=== PATIENT | female | born 1970 | race Caucasian/White ===

== ENCOUNTER → 2016-11-23 | Outpatient (CLI) | payer OTHER ==
[~2016-11-23] VITALS: Ht 182.9 cm; Wt 69.3 kg
[~2016-11-23] MED LIST: FENTANYL PA50 MCG/HR TRANSDERM; NABUMETONE 750750 M1 PO; OXYCODONE HCL30 MG PO; XANAX 0.5 MG0.5 MG PO
--- NOTE | ~2016-11-23 | HPC ---
[facility] [address] [place] [address] PAIN MANAGEMENT CONSULTATION Name: CHETLEANNA WILLARD [facility] [id number] Admission: 11/23/16 Attend Phys: Mike Johnson DO Discharge: Date of : 68 Report #: [id number] THIS REPORT FOR: //name// CC: CORDELIA Johnson HISTORY OF PRESENT ILLNESS: The patient is an extremely pleasant 46-year-old female, prior seen back in September in followup, had a single cervical epidural injection on 09/18/2016, with 75-100% overall improvement of baseline pain, symptoms were abated when I saw her last, we elected to postpone any interventional therapy. She returns to pain clinic today noting symptoms have begun to recur noting pain in the neck, radiating to both shoulders and upper arms, all associated with an ongoing headache. Rates pain 4-5 on a 0-10 Visual Analog Scale. She has been sleeping in a recliner with some efficacy. PHYSICAL EXAMINATION: Reveals a 46-year-old female. BMI is 20.7 kg/m2. Vital signs stable as noted in the EMR. Cervical range of motion shows positive Lhermitte. Upper extremity strength is generally symmetric. Prior right shoulder trauma and rotator cuff repair, some slight weakness in the deltoid muscles on this side. ASSESSMENT: Symptomatic cervical radiculopathy by clinical exam, greater than 75% relief following single injection back in August with several months of relief, pain has gradually begun to recur. RECOMMENDATIONS: After discussion with the patient today, we have elected to proceed with cervical epidural injection under fluoroscopy today. Follow up in 4 weeks for reevaluation. PROCEDURE: Cervical epidural injection under fluoroscopy. PROCEDURE NOTE: After written and informed consent was obtained including risk of dural puncture, spinal cord trauma, paralysis and increased pain, the patient was taken to the fluoroscopy suite and placed in the prone position, with appropriate abdominal bolstering, neck was flexed, palms under the thighs. Skin was prepped with ChloraPrep. Sterile draping was applied. Skin wheal with 3% Nesacaine was raised; 3% Nesacaine was used in consideration of the patient's AMIDE LOCAL ANESTHETIC ALLERGY. A 22-gauge 3-1/2 inch epidural Tuohy needle was placed via a midline approach at the C7-T1 interspace, advanced under biplanar fluoroscopy using continuous loss of resistance. With appropriate loss of resistance at the expected depth on lateral view, the glass loss of resistance syringe was disconnected. A low volume extension tubing was connected to the needle and a 5 mL syringe. Negative aspiration for cerebrospinal fluid or blood was noted. One mL of Omnipaque was injected which showed spread within the epidural space on biplanar fluoroscopy. This was followed with 80 mg of triamcinolone plus 1 mL of 1.5% preservative Nesacaine. Needle was withdrawn to the interspinous ligament, Nesacaine was used to flush the [address] [address] PAIN MANAGEMENT CONSULTATION Name: LEANNA ROSENBERG Room #: REG JONATHAN Sharif#: [id number] Admission: 11/23/16 Attend Phys: Mike Johnson, Discharge: Date of : 68 Report #: [id number] needle. The needle was then completely withdrawn. The area was cleansed. Band-Aid was applied. The patient was allowed to move off the procedure table and ambulated to the recovery room, monitored for an appropriate period of time, discharged in good and stable condition. <ELECTRONICALLY SIGNED> By: Mike Johnson DO 11/29/16 1607 0702 0944 Mike Johnson DO /nt
[2016-11-23 14:01] VITALS: BP 124/54
== END | disposition home or self-care (01) ==
LOC: PAIN 10-02 08:55
DX: M54.12 Radiculopathy, cervical region (principal); M19.90 Unspecified osteoarthritis, unspecified site; F17.210 Nicotine dependence, cigarettes, uncomplicated

== ENCOUNTER → 2016-12-18 | Outpatient (CLI) | payer OTHER ==
[~2016-12-18] VITALS: Ht 182.9 cm; Wt 70.0 kg
--- NOTE | ~2016-12-18 | HPC ---
[facility] [place] [address] PAIN MANAGEMENT CONSULTATION Name: CHETLEANNA WILLARD [facility]: REG [facility] [id number] Admission: 12/18/16 Attend Phys: Mike Johnson DO Discharge: Date of : 68 Report #: [id number] THIS REPORT FOR: //name// CC: CORDELIA Johnson The patient is a very pleasant 46-year-old female, being treated for symptomatic cervical radiculopathy. Initial cervical injection on 09/18/2016, second injection on 11/23/2016. He returns to pain clinic today, noting greater than 50% improvement of baseline pain, still has cervical radicular symptoms, primarily in right arm, but has some left lateral epicondylitis pain as well. Cervical range of motion shows positive Lhermitte's. Ongoing headaches as well. ASSESSMENT: Symptomatic cervical radiculopathy, incremental improvement following 2 epidural injections, and pain remains problematic. RECOMMENDATION: Repeat cervical epidural injection under fluoroscopy today. Follow up as needed. We did talk about getting an bfwm-ras-xfaorup "tennis strap" for her left forearm. She does have point tenderness over the lateral epicondyle with pain exacerbated with resistance to extension of the left wrist. ASSESSMENT: Symptomatic cervical radiculopathy. PROCEDURE: Cervical epidural injection under fluoroscopy. DESCRIPTION OF PROCEDURE: After written and informed consent was obtained including risk of dural puncture, spinal cord trauma, paralysis and increased pain, the patient was taken to the fluoroscopy suite and placed in the prone position, with appropriate abdominal bolstering, neck was flexed, palms under the thighs. Skin was prepped with ChloraPrep. Sterile draping was applied. Skin wheal with 1% Xylocaine was raised. A 22-gauge 3-1/2 inch epidural Tuohy needle was placed via a midline approach at the C7-T1 interspace, advanced under biplanar fluoroscopy using continuous loss of resistance. With appropriate loss of resistance at the expected depth on lateral view, the glass loss of resistance syringe was disconnected. A low volume extension tubing was connected to the needle and a 5 mL syringe. Negative aspiration for cerebrospinal fluid or blood was noted. A 1 mL of Omnipaque was injected which showed spread within the epidural space on biplanar fluoroscopy. This was followed with 80 mg of triamcinolone plus 1 mL of 1.5% preservative Xylocaine. Needle was withdrawn to the interspinous ligament, 0.5 mL of Xylocaine was used to flush the needle. The needle was then completely withdrawn. The area was cleansed. Band-Aid was applied. The [place] [address] PAIN MANAGEMENT CONSULTATION Name: LEANNA ROSENBERG Room #: REG JONATHAN Sharif#: [id number] Admission: 12/18/16 Attend Phys: Mike Johnson DO Discharge: Date of : 68 Report #: [id number] procedure table and ambulated to the recovery room, monitored for an appropriate period of time, discharged in good and stable condition. <ELECTRONICALLY SIGNED> By: Mike Johnson DO 12/22/16 0811 1116 1351 Mike Johnson DO /nt
[2016-12-18 09:47] VITALS: BP 110/66
== END | disposition home or self-care (01) ==
LOC: PAIN 07:04
DX: M54.12 Radiculopathy, cervical region (principal)

== ENCOUNTER → 2017-03-09 | Outpatient (CLI) | payer OTHER ==
[~2017-03-09] VITALS: Ht 182.9 cm; Wt 72.6 kg
--- NOTE | ~2017-03-09 | HPC ---
[facility] [address] [address] PAIN MANAGEMENT CONSULTATION Name: CHETLEANNA WILLARD [facility] #: REG [facility] [id number] Admission: 03/09/17 Attend Phys: Mike Johnson DO Discharge: Date of : 68 Report #: [id number] THIS REPORT FOR: //name// CC: CORDELIA Johnson The patient is a pleasant 47-year-old female, being treated for symptomatic cervical radiculopathy. She had an initial cervical epidural injection back in August, two injections in November with recurrent cervical radicular symptoms. She returns to pain clinic today, noting that while the injections afforded good relief, pain remains problematic. She is also complaining bitterly of bilateral tennis elbow type symptoms with lateral epicondylitis pain. Ongoing pain in the upper back, and between her shoulder blades. PHYSICAL EXAMINATION: Shows a pleasant 47-year-old female, BMI is 21.7 kilograms per meter squared. Vital signs are stable as noted in the EMR. Cervical range of motion has modestly positive Lhermitte's, pain with abduction. Very tender over the left and right lateral epicondyles, pain with resistance to wrist extension. No myelopathic symptoms noted. Tender in the upper thoracic paravertebral muscles, some spasm noted, but no discrete trigger points. ASSESSMENT: 1. Symptomatic cervical radiculopathy. 2. Bilateral lateral epicondylitis, status post lumbar decompressive laminectomy. RECOMMENDATIONS: 1. I had a long discussion with the patient today about therapeutic options. We would like to refer to physical therapy for modalities as indicated, including iontophoresis for bilateral epicondylitis and for strengthening and therapeutic exercises for upper thoracic spondylosis and myofascial pain. 2. Continue nabumetone 750 mg b.i.d. 3. Opiate analgesics as prescribed by Dr. Zavala. 4. Cervical epidural injection under fluoroscopy today. 5. Follow up in 30 days for reevaluation. PROCEDURE NOTE: Cervical epidural injection under fluoroscopy. DESCRIPTION OF PROCEDURE: After written and informed consent was obtained including risk of dural puncture, spinal cord trauma, paralysis and increased pain, the patient was taken to the fluoroscopy suite and placed in the prone position, with appropriate abdominal bolstering, neck was flexed, palms under the thighs. Skin was prepped with ChloraPrep. Sterile draping was applied. Skin wheal with 1% Xylocaine was raised. A 22-gauge 3-1/2 inch epidural Tuohy needle was placed via a midline approach at the C7-T1 interspace, advanced under biplanar fluoroscopy using continuous loss of resistance. With appropriate loss [address] [address] PAIN MANAGEMENT CONSULTATION Name: LEANNA ROSENBERG Room #: REG [facility] Chante#: [id number] Admission: 03/09/17 Attend Phys: Mike Johnson DO Discharge: Date of : 68 Report #: [id number] of resistance at the expected depth on lateral view, the glass loss of resistance syringe was disconnected. A low volume extension tubing was connected to the needle and a 5 mL syringe. Negative aspiration for cerebrospinal fluid or blood was noted. A 1 mL of Omnipaque was injected which showed spread within the epidural space on biplanar fluoroscopy. This was followed with 80 mg of triamcinolone plus 1 mL of 1.5% preservative Xylocaine. Needle was withdrawn to the interspinous ligament, 0.5 mL of Xylocaine was used to flush the needle. The needle was then completely withdrawn. The area was cleansed. Band-Aid was applied. The patient was allowed to move off the procedure table and ambulated to the recovery room, monitored for an appropriate period of time, discharged in good and stable condition. <ELECTRONICALLY SIGNED> By: Mike Johnson DO 03/12/17 1538 1221 1534 Mike Johnson DO /nt
[2017-03-09 09:51] VITALS: BP 109/69
== END ==
LOC: PAIN 06:46
DX: M54.12 Radiculopathy, cervical region (principal); M19.90 Unspecified osteoarthritis, unspecified site; F32.9 Major depressive disorder, single episode, unspecified; Z87.891 Personal history of nicotine dependence

== ENCOUNTER → 2017-07-13 | Outpatient (CLI) | payer OTHER ==
[~2017-07-13] VITALS: Ht 182.9 cm; Wt 68.9 kg
[~2017-07-13] MED LIST changes: +OMEPRAZOLE 20 M20 M1 PO
--- NOTE | ~2017-07-13 | HPC ---
[facility] [place] [address] PAIN MANAGEMENT CONSULTATION Name: LEANNA ROSENBERG Room #: REG [facility] [id number] Admission: 07/13/17 Attend Phys: Mike Johnson DO Discharge: Date of : 68 Report #: [id number] THIS REPORT FOR: //name// CC: CORDLEIA Johnson DATE OF SERVICE: 07/13/2017 The patient is a pleasant 47-year-old female being treated for symptomatic cervical radiculopathy. She has had good relief with epidural injections in the fall of 2015, again in November of this year and in February. Symptoms have begun to recur. She has grossly positive Lhermitte's with pain going into the bilateral shoulders, left greater than right. She incidentally notes ongoing lumbar radicular pain in the left leg. She has had extensive fusion at L4, L5 and S1 about a decade ago. Also had trauma with L1 compression fracture treated with kyphoplasty. While she has some low back and left lumbar radicular pain, her primary issue remains cervical radicular symptoms. Again symptoms compatible with cervical radiculopathy by clinical exam and history, does have component of some upper thoracic spondylosis and myofascial pain. PHYSICAL EXAMINATION: Shows 47-year-old female. BMI is 20.6 kg/m2. Vital signs stable. Cervical range of motion, again positive Lhermitte's with pain going bilateral shoulders, little worse in the left than the right. Hand grasp is slightly diminished in the left greater than right. Rises from chair using armrest. Gait is tandem. Lumbar flexion is limited. Well-healed midline surgical scar. TREVOR test is negative. Positive straight leg raise in left. ASSESSMENT: Symptomatic cervical radiculopathy, component of lumbar radiculopathy status post decompressive laminectomy. RECOMMENDATION: 1. Epidural injection under fluoroscopy today with Nesacaine due to AMIDE-TYPE ALLERGY. 2. We will renew physical therapy for upper thoracic spondylosis and myofascial pain. 3. Follow simply as needed. Consideration for lumbar epidural injection if indicated clinically. We would like to see a new MRI of the lumbar spine with and without contrast due to ongoing lumbar radicular symptoms. ASSESSMENT: Symptomatic cervical radiculopathy. PROCEDURE: Cervical epidural injection under fluoroscopy. PROCEDURE NOTE: After written and informed consent was obtained including risk of dural puncture, spinal cord trauma, paralysis and increased pain, the patient was taken to the fluoroscopy suite and placed in the prone position, with appropriate abdominal bolstering, neck was flexed, palms under the thighs. Skin [address] [address] PAIN MANAGEMENT CONSULTATION Name: LEANNA ROSENBERG Room #: REG [facility] Chante#: [id number] Admission: 07/13/17 Attend Phys: Mike Johnson DO Discharge: Date of : 68 Report #: [id number] was prepped with ChloraPrep. Sterile draping was applied. Skin wheal with 3% Nesacaine was raised. A 22-gauge 3-1/2 inch epidural Tuohy needle was placed via a midline approach at the ____ interspace, advanced under biplanar fluoroscopy using continuous loss of resistance. With appropriate loss of resistance at the expected depth on lateral view, the glass loss of resistance syringe was disconnected. A low volume extension tubing was connected to the needle and a 5 mL syringe. Negative aspiration for cerebrospinal fluid or blood was noted. A 1 mL of Omnipaque was injected, which showed spread within the epidural space on biplanar fluoroscopy. This was followed with 80 mg of triamcinolone plus 1 mL of 3% preservative Nesacaine. Needle was withdrawn to the interspinous ligament, 0.5 mL of Nesacaine was used to flush the needle. The needle was then completely withdrawn. The area was cleansed. Band-Aid was applied. The patient was allowed to move off the procedure table and ambulated to the recovery room, monitored for an appropriate period of time, discharged in good and stable condition. By: [id number] Mike Johnson DO /dilan
[2017-07-13 12:45] VITALS: BP 111/71
== END | disposition home or self-care (01) ==
LOC: PAIN 03-30 07:04
DX: M54.12 Radiculopathy, cervical region (principal); M54.16 Radiculopathy, lumbar region; M19.90 Unspecified osteoarthritis, unspecified site; F17.210 Nicotine dependence, cigarettes, uncomplicated; Z98.890 Other specified postprocedural states; Z88.8 Allergy status to other drugs, medicaments and biological substances

== ENCOUNTER → 2017-09-03 | Outpatient (CLI) | payer OTHER ==
[~2017-09-03] VITALS: Ht 182.9 cm; Wt 70.7 kg
--- NOTE | ~2017-09-03 | HPC ---
[facility] [address] [address] PAIN MANAGEMENT CONSULTATION Name: ROSENBERGLEANNA MONTSE Room #: REG [facility] [id number] Admission: 09/03/17 Attend Phys: Mike Johnson DO Discharge: Date of : 68 Report #: [id number] THIS REPORT FOR: //name// CC: CORDELIA Johnson The patient is a 47-year-old female being treated for symptomatic cervical radiculopathy, history of lumbar decompressive laminectomy, status post traumatic L1 vertebral compression fracture with subsequent vertebroplasty. Last seen in pain clinic 07/13/2017, we did an epidural injection at that time (prior injections in November and February of this year). She returns to pain clinic today, noting symptomatic cervical radicular symptoms have recurred, pain is in the neck and bilateral shoulders. Sharp stabbing sensation, exacerbated with sleeping, driving, and immobility. PHYSICAL EXAMINATION: Shows a 47-year-old female, BMI is 20.1kg/m2. Vital signs are stable. Cervical range of motion is limited with positive Lhermitte's. Pain goes into the lateral epicondyle. Does have some thoracic radicular symptoms. ASSESSMENT: Symptomatic cervical radiculopathy by clinical exam and history. She has had very good relief with cervical epidural injection, specifically noting 90% relief for about 1 month following the last injection with gradual return of symptoms. Symptomatic cervical radiculopathy by clinical exam and history in a patient who has had good relief with epidural injections, but unfortunately with ongoing symptoms, I think she may require surgical intervention. Today, we talked about postponing her cervical epidural injection today, she had a flu shot 3 days ago. I will wait a total of 10 days and repeat the cervical epidural injection a week from today, we will use Nesacaine as a local anesthetic due to an AMIDE STEROID allergy. We will refer the patient back to Dr. Tato Yun who had prior done her back surgery and referred her to us for the cervical radicular issues. Her MRI from August 2016, cervical spine showed vnkiqcon-fn-[id number] bilateral stenosis at C3-C4, left greater than right. I am not sure if an EMG has been accomplished. The patient was discharged in good and stable condition today, again we will postpone interventional therapy due to the prior flu vaccination. Again, we will repeat the cervical epidural injection using Nesacaine in 1 week and refer back to Dr. Tato Yun for consideration for more definitive intervention. <ELECTRONICALLY SIGNED> By: Mike Johnson DO 09/05/17 0802 1210 1429 Mike Johnson DO /nt
[2017-09-03 10:53] VITALS: BP 112/64
== END | disposition home or self-care (01) ==
LOC: PAIN 07:10
DX: M54.12 Radiculopathy, cervical region (principal); M19.90 Unspecified osteoarthritis, unspecified site; F17.210 Nicotine dependence, cigarettes, uncomplicated; Z87.81 Personal history of (healed) traumatic fracture; Z98.890 Other specified postprocedural states; Z88.6 Allergy status to analgesic agent; Z79.899 Other long term (current) drug therapy

== ENCOUNTER → 2017-09-10 | Outpatient (CLI) | payer OTHER ==
[~2017-09-10] VITALS: Ht 182.9 cm; Wt 70.3 kg
--- NOTE | ~2017-09-10 | HPC ---
[facility] [place] [address] PAIN MANAGEMENT CONSULTATION Name: CHETLEANNA WILLARD Room #: REG [facility] [id number] Admission: 09/10/17 Attend Phys: Mike Johnson DO Discharge: Date of : 68 Report #: [id number] THIS REPORT FOR: //name// CC: CORDELIA Johnson The patient is a very pleasant 47-year-old female, being treated for cervical radiculopathy with significant stenosis, status post lumbar decompressive laminectomy. Last seen in the pain clinic 09/03/2017, we sought authorization for cervical epidural injection today. The patient presents to pain clinic today for cervical injection. We talked about ongoing stenosis in the cervical spine, we elected to refer the patient to Dr. Yun for consideration for cervical decompression. Today with ongoing symptoms, we elected to repeat the cervical epidural injection today. ASSESSMENT: 1. Symptomatic cervical radiculopathy by clinical exam and history. The patient with an AMIDE allergy, we will proceed with cervical epidural injection with Nesacaine. 2. Symptomatic cervical radiculopathy. RECOMMENDATION: 1. Procedure today, MRI of the cervical spine ordered. 2. Follow up with Dr. Yun. PROCEDURE: Cervical epidural injection under fluoroscopy. PROCEDURE NOTE: After written and informed consent was obtained including risk of dural puncture, spinal cord trauma, paralysis and increased pain, the patient was taken to the fluoroscopy suite and placed in the prone position, with appropriate abdominal bolstering, neck was flexed, palms under the thighs. Skin was prepped with ChloraPrep. Sterile draping was applied. Skin wheal with 3% Nesacaine was raised. A 22-gauge 3-1/2 inch epidural Tuohy needle was placed via a midline approach at the C7-T1 interspace, advanced under biplanar fluoroscopy using continuous loss of resistance. With appropriate loss of resistance at the expected depth on lateral view, the glass loss of resistance syringe was disconnected. A low volume extension tubing was connected to the needle and a 5 mL syringe. Negative aspiration for cerebrospinal fluid or blood was noted. A 1 mL of Omnipaque was injected which showed spread within the epidural space on biplanar fluoroscopy. This was followed with 80 mg of triamcinolone plus 1 mL of 1.5% preservative Xylocaine. Needle was withdrawn to the interspinous ligament, 0.5 mL of Xylocaine was used to flush the needle. The needle was then completely withdrawn. The area was cleansed. Band-Aid was applied. The patient was allowed to move off the procedure table and ambulated [address] [address] PAIN MANAGEMENT CONSULTATION Name: LEANNA ROSENBERG Room #: REG Jatinder Sharif#: [id number] Admission: 09/10/17 Attend Phys: Mike Johnson DO Discharge: Date of : 68 Report #: [id number] to the recovery room, monitored for an appropriate period of time, discharged in good and stable condition. By: [id number] Mike Johnson DO /nt
[2017-09-10 11:05] VITALS: BP 118/52
== END | disposition home or self-care (01) ==
LOC: PAIN 06:58
DX: M54.12 Radiculopathy, cervical region (principal); M48.02 Spinal stenosis, cervical region; M19.90 Unspecified osteoarthritis, unspecified site; F17.200 Nicotine dependence, unspecified, uncomplicated; Z98.890 Other specified postprocedural states; Z88.6 Allergy status to analgesic agent; Z79.891 Long term (current) use of opiate analgesic; Z79.899 Other long term (current) drug therapy

== ENCOUNTER → 2017-11-08 | Outpatient (CLI) | payer OTHER ==
[~2017-11-08] VITALS: Ht 182.9 cm; Wt 70.9 kg
--- NOTE | ~2017-11-08 | HPC ---
[facility] [address] [address] PAIN MANAGEMENT CONSULTATION Name: LEANNA ROSENBERG Room #: REG [facility]#: [id number] Admission: 11/08/17 Attend Phys: Mike Johnson DO Discharge: Date of : 68 Report #: [id number] THIS REPORT FOR: //name// CC: CORDELIA Johnson HISTORY OF PRESENT ILLNESS: The patient is a 47-year-old female being treated for symptomatic cervical radiculopathy. She has done excellent with cervical epidural injections, but symptoms began to recur after each injection. Last injection was on 09/10/2017. Given recurrence of symptoms, I have the patient to follow up with Neurosurgery. She saw Dr. Tato Yun on 10/19/2017. His thoughts at that time where the patient had cervical spondylosis, cervicalgia and shoulder pain. Did not think that she was amenable to a cervical decompression at that time and he advised the patient to continue with conservative therapy and encouraged her to follow up with me for additional cervical epidural injections as indicated. The patient returns to pain clinic today noting pain has recurred. It is primarily in the neck, right greater than left shoulder and arm. Rates pain 2-3 on a VAS. It is exacerbated with sleeping and driving. She notes subjective pain does increase up to 6-7 at its worse. PHYSICAL EXAMINATION: GENERAL: Unchanged pleasant 39-year-old female. VITAL SIGNS: BMI is 29.2 kilograms per meter squared. Vital signs stable. MUSCULOSKELETAL: Positive Lhermitte's. Upper extremity strength is preserved with slight diminution, right abduction strength. ASSESSMENT: Symptomatic cervical radiculopathy. PROCEDURE: Cervical epidural injection under fluoroscopy. PROCEDURE: Cervical epidural steroid injection under fluoroscopy. PROCEDURE NOTE: After written and informed consent was obtained including risk of dural puncture, spinal cord trauma, paralysis and increased pain, the patient was taken to the fluoroscopy suite and placed in the prone position, with appropriate abdominal bolstering, neck was flexed, palms under the thighs. Skin was prepped with ChloraPrep. Sterile draping was applied. Skin wheal with 3% Nesacaine was raised. A 22-gauge 3-1/2 inch epidural Tuohy needle was placed via a midline approach at the C7-T1 interspace, advanced under biplanar fluoroscopy using continuous loss of resistance. With appropriate loss of resistance at the expected depth on lateral view, the glass loss of resistance syringe was disconnected. A low volume extension tubing was connected to the needle and a 5 mL syringe. Negative aspiration for cerebrospinal fluid or blood was noted. A 1 mL of Omnipaque was injected which showed spread within the epidural space on biplanar fluoroscopy. This was followed with 80 mg [address] [address] PAIN MANAGEMENT CONSULTATION Name: LEANNA ROSENBERG Room #: REG CLI [facility]#: [id number] Admission: 11/08/17 Attend Phys: Mike Johnson DO Discharge: Date of : 68 Report #: [id number] triamcinolone plus 1 mL of 3% Nesacaine. Needle was withdrawn to the interspinous ligament, 3% Nesacaine was used to flush the needle. The needle was then completely withdrawn. The area was cleansed. Band-Aid was applied. The patient was allowed to move off the procedure table and ambulated to the recovery room, monitored for an appropriate period of time, discharged in good and stable condition. <ELECTRONICALLY SIGNED> By: Mike Johnson DO 11/09/17 0650 1613 0049 Mike Johnson DO /nt
[2017-11-08 10:09] VITALS: BP 102/62
== END | disposition home or self-care (01) ==
LOC: PAIN 07:03
DX: M54.12 Radiculopathy, cervical region (principal); M19.90 Unspecified osteoarthritis, unspecified site; F17.210 Nicotine dependence, cigarettes, uncomplicated; Z88.6 Allergy status to analgesic agent; Z79.891 Long term (current) use of opiate analgesic; Z79.899 Other long term (current) drug therapy; Z98.890 Other specified postprocedural states

== ENCOUNTER → 2018-01-17 | Outpatient (CLI) | payer OTHER ==
[~2018-01-17] VITALS: Ht 182.9 cm; Wt 73.5 kg
[~2018-01-17] MED LIST changes: +FLONASE 0.05%50 MCG NASAL; +IBUPROFEN 400400 M1 PO; +TYLENOL EXTRA500 MG PO
--- NOTE | ~2018-01-17 | HPC ---
[facility] [place] [address] PAIN MANAGEMENT CONSULTATION Name: LEANNA ROSENBERG Room #: REG [facility] Chante#: [id number] Admission: 01/17/18 Attend Phys: Mike Johnson DO Discharge: Date of : 68 Report #: [id number] THIS REPORT FOR: //name// CC: CORDELIA Johnson DATE OF SERVICE: 01/17/2018 This patient is a very pleasant 47-year-old female being treated for symptomatic cervical radiculopathy, component of cervical spondylosis. She incidentally has a prior history of lumbar decompressive laminectomy in the distant past. The patient has had a number of cervical epidural injections, all affording transient relief. She had five cervical epidural injections in 2017 and one in 2015. Last injection was 11/08/2017. This again afforded good transient relief, but symptoms have continued to recur. She followed up with Dr. Tato Yun 10/19/2017. He thought that she was not a surgical candidate and suggested continue with symptomatic treatment with cervical epidural injections. PHYSICAL EXAMINATION: Shows pleasant 47-year-old female. Cervical range of motion is modestly limited tenderness in the cervical spine. Positive Lhermitte with symptoms radiating to the right greater than left shoulder and arm. Hand grasp is symmetric with slight decreased right deltoid and triceps strength compared to the left. ASSESSMENT: Symptomatic cervical radiculopathy clinical exam and history. RECOMMENDATIONS: Long discussion with the patient today about therapeutic options. Briefly talked about a spinal cord stimulator as a therapeutic option. The patient has apparently had a lumbar spinal cord stimulator trial, which she found quite off putting. She progressed to have a decompressive lumbar laminectomy. Today, she was tearful relating that she simply cannot live with ongoing cervical radicular symptoms. While she gets short term relief with epidural injections, I told her I was concerned about exposing her to a prolonged steroids with concern for osteoporosis. (She is perimenopausal presently). She is a thin female with a BMI of about 22 kilograms per meter squared. She is a smoker, though she was counseled regarding smoking cessation. The patient asked for referral for a second opinion. I did give her contact information for [facility] for a second opinion regarding cervical issues. If she is not a surgical candidate, she would like to be referred to a rough rice grader for evaluation for ongoing [place] [address] PAIN MANAGEMENT CONSULTATION Name: CHETLEANNA MONTSE Room #: REG CL Chante#: [id number] Admission: 01/17/18 Attend Phys: Mike Johnson DO Discharge: Date of : 68 Report #: [id number] I have taken the liberty of putting the patient in contact with Dr. Jose Dasilva. ASSESSMENT: Symptomatic cervical radiculopathy. Clinical exam and history. PROCEDURE: Cervical epidural injection under fluoroscopy. PROCEDURE NOTE: Cervical epidural to the approach at the C7-T1. <ELECTRONICALLY SIGNED> By: Mike Johnson DO 01/18/18 0727 1227 1814 Mike Johnson DO /nt
[2018-01-17 10:56] VITALS: BP 112/55
== END ==
LOC: PAIN 07:26
DX: M54.12 Radiculopathy, cervical region (principal)